=== PATIENT | female | born 1955 | race African-American/Black ===

== ENCOUNTER 2017-12-15 07:44 | Emergency (ER) | payer MEDICAID, OTHER ==
[~2017-12-15] VITALS: Ht 157.5 cm; Wt 81.8 kg
[~2017-12-15 07:44] MED LIST: NIFE30TA5 PO
[2017-12-15] MEDS ORDERED: GUAI120S17 PO (07:51)
[2017-12-15] MEDS ORDERED: ATOR40TA28 PO (07:51)
[2017-12-15] MEDS ORDERED: ASPI81TA42 PO (07:51)
[2017-12-15] MEDS ORDERED: LISI-662 PO (07:51)
[2017-12-15] MEDS ORDERED: METO50 PO (07:51)
[2017-12-15] MEDS ORDERED: AMLO-512 PO (07:51)
[2017-12-15] MEDS ORDERED: METOPROLOL SUCCINATE 50 MG ER TABLET PO ONE (09:00)
[2017-12-15] MEDS ORDERED: DiphenhydrAMINE HCL 50 MG/ML VIAL IM ONE (09:00)
[2017-12-15] MEDS ORDERED: AmLODIPine BESYLATE 5 MG TABLET PO ONE (09:00)
[2017-12-15 10:28] VITALS: BP 155/89
== END 2017-12-15 10:43 | disposition home or self-care (01) ==
LOC: EMS 07:45
DX: T78.1XXA Other adverse food reactions, not elsewhere classified, initial encounter (principal); I10 Essential (primary) hypertension; Z79.82 Long term (current) use of aspirin
CPT/HCPCS: 96372; 99283; J1200